=== PATIENT | female | born 1975 | race Caucasian/White ===

== ENCOUNTER 2016-08-02 17:38 | Emergency (ER) | payer OTHER ==
--- NOTE | 2016-08-02 18:24 | CT ---
L-SPINE W/O CON HISTORY: Pain radiating to right leg. History of spinal cord stimulator device. COMPARISONS: Plain films 07/12/[address] abdomen and pelvis 01/11/2016. TECHNIQUE: Contiguous axial 2 mm images of the lumbar spine are obtained without IV contrast. Sagittal and coronal reformations were also obtained this time. CTDI: 53.3 DLP: 1462.6 FINDINGS: The patient's spinal cord stimulator device is identified entering the thecal sac at approximately L1-2, and T11-12. This is unchanged from prior plain film of 07/12/2016. Intervertebral disc height and vertebral body heights are well-maintained. No fracture or dislocation. Neural foramina are widely patent. Evaluation of the thecal contents is limited given the inherent spatial and contrast resolution limitations of CT though no gross abnormality is identified. Regional soft tissues are intact. IMPRESSION: No fracture or dislocation. Spinal stimulator device. Close clinical and radiographic follow-up are recommended. Findings were called to Dr. Sharif at approximately 1819 hours on 08/02/2016.
--- NOTE | 2016-08-02 18:29 | RAD ---
08/02/2016 6:24 PM ABDOMEN OR KUB HISTORY: Evaluate for lead or battery pack migration of spinal stimulator device. COMPARISON: Lumbar plain films 07/12/2016 TECHNIQUE: Single supine view FINDINGS: There are nondilated loops of small and large bowel containing gas and stool. There are no dilated loops to suggest ileus or obstruction. There is no evidence of free intra-abdominal gas. Osseous structures are intact. The patient's left-sided spinal stimulator device is unchanged in its location. The leads are also unchanged. IMPRESSION: Unchanged appearance to the patient's spinal stimulator device. Nonspecific, nonobstructive bowel gas pattern. Follow-up as clinically warranted.
== END 2016-08-02 18:32 | disposition home or self-care (01) ==
LOC: ED 17:38
DX: M54.5 Low back pain (principal); G89.29 Other chronic pain; R42 Dizziness and giddiness; T85.199A Other mechanical complication of other implanted electronic stimulator of nervous system, initial encounter; Y83.8 Other surgical procedures as the cause of abnormal reaction of the patient, or of later complication, without mention of misadventure at the time of the procedure; Y92.9 Unspecified place or not applicable; Y75.1 Therapeutic (nonsurgical) and rehabilitative neurological devices associated with adverse incidents